=== PATIENT | female | born 1985 | race Two or more races ===

== ENCOUNTER 2024-12-19 09:57 | Emergency (ER) | payer OTHER ==
[~2024-12-19] VITALS: Ht 162.6 cm; Wt 68.0 kg
[2024-12-19] MEDS ORDERED: ORPHENADRINE CITRATE 30 MG/ML AMPUL IM STA (10:13)
[2024-12-19] MEDS ORDERED: DEXAMETHASONE SODIUM PHOSPHATE 4 MG/ML VIAL IM STA (10:14)
[2024-12-19] MEDS ORDERED: KETOROLAC TROMETHAMINE 30 MG VIAL IM STA (10:14)
[2024-12-19] MEDS ORDERED: KETOROLAC TROMETHAMINE 30 MG VIAL ONE (10:19)
[2024-12-19] MEDS ORDERED: DEXAMETHASONE SODIUM PHOSPHATE 4 MG/ML VIAL ONE (10:19)
[2024-12-19] MEDS ORDERED: ORPHENADRINE CITRATE 30 MG/ML AMPUL ONE (10:19)
[2024-12-19] MEDS ORDERED: IBU600 MG PO (10:57)
[2024-12-19] MEDS ORDERED: NORFLEX100MG PO (10:57)
== END 2024-12-19 13:36 | disposition home or self-care (01) ==
LOC: ER 09:58
DX: M43.6 Torticollis (principal)